=== PATIENT | female | born 1990 | race African-American/Black ===

== ENCOUNTER 2021-01-16 10:33 | Outpatient (CLI) | payer BC ==
[2021-01-16 12:14] LABS: Hemoglobin 12.6 g/dL (12.0-15.5); Mean Corpuscular HGB CONC 32.6 g/dL (32.0-36.0); Mean Corpuscular Hemoglobin 30.1 pg (27.0-33.0); Mean Corpuscular Volume 92.1 fl (81.6-98.3); Mean Platelet Volume 10.4 fl (7.4-10.4); Platelet Count 236 10x3/uL (150-450); RBC Distribution Width 13.5 % (11.5-14.5); Red Blood Cell (RBC) Count 4.19 10x6/uL (3.90-5.03); White Blood Cell (WBC) Count 12.1 10x3/uL (3.5-10.5)
[2021-01-16 13:18] LABS: BHCG - Serum POSITIVE (NEGATIVE); Pregs Control Background? CLEAR/WHITE (CLR/WHITE); Pregs Control Bar Appear? YES (CONTROL BAR)
[2021-01-16 20:27] LABS: SARS-CoV-2 PCR by NAA Not Detected (NotDetected)
== END 2021-01-16 10:34 | disposition home or self-care (01) ==
LOC: CSHLAB 10:33
PROVIDERS: ATTEND Obstetrics & Gynecology
DX: Z01.812 Encounter for preprocedural laboratory examination (principal); Z20.822 Contact with and (suspected) exposure to COVID-19; O00.80 Other ectopic pregnancy without intrauterine pregnancy
CPT/HCPCS: 84703; 85027; 87635; U0003; U0005

== ENCOUNTER 2021-01-17 09:12 | Day surgery (SDC) | payer BC ==
[2021-01-16 12:12] VITALS: BMI 30.1
[2021-01-17] MEDS ORDERED: EPINEPHrine 1 MG/ML AMP ONE (09:51)
[2021-01-17] MEDS ORDERED: Midazolam HCl 2 mg/2 ml Vial ONE (09:52)
[2021-01-17] MEDS ORDERED: Lidocaine 1% MPF 2 ML VIAL ONE (09:52)
[2021-01-17] MEDS ORDERED: Bupivacaine PF 0.5% 30 ML VIAL ONE (09:52)
[2021-01-17] MEDS ORDERED: Scopolamine 1.5 mg/72 hour Patch ONE (09:52)
[2021-01-17] MEDS ORDERED: Famotidine/PF 20 mg/2ml Vial ONE (09:53)
[2021-01-17] MEDS ORDERED: Rocuronium Bromide 10 MG/ML (10ML VIAL) ONE (09:54)
[2021-01-17] MEDS ORDERED: Lidocaine 1% PF 5 ML VIAL ONE (09:54)
[2021-01-17] MEDS ORDERED: Fentanyl 100 MCG/2 ML VIAL ONE (09:54)
[2021-01-17] MEDS ORDERED: PROPOFOL 20 ML ONE (09:54)
[2021-01-17] MEDS ORDERED: Dexamethasone 20 MG/5 ML VIAL ONE (10:25)
[2021-01-17] MEDS ORDERED: Ondansetron PF 4 MG/2 ML Vial ONE (10:25)
[2021-01-17] MEDS ORDERED: Glycopyrrolate 0.2 MG/ML 5 ML SYRINGE ONE (10:28)
[2021-01-17] MEDS ORDERED: Ketorolac Tromethamine 15 MG/ML VIAL ONE (10:50)
[2021-01-17] MEDS ORDERED: SUGAMMADEX SODIUM 500 MG/5 ML VIAL ONE (10:51)
== END 2021-01-17 12:55 | disposition home or self-care (01) ==
LOC: CSHSDC 09:12
PROVIDERS: ATTEND Obstetrics & Gynecology
PROC: 0UT54ZZ Resection of Right Fallopian Tube, Percutaneous Endoscopic Approach (ICD-10-PCS; principal; 2021-01-17)
PROC: 10T24ZZ Resection of Products of Conception, Ectopic, Percutaneous Endoscopic Approach (ICD-10-PCS; principal; 2021-01-17)
DX: O00.101 Right tubal pregnancy without intrauterine pregnancy (principal); N70.11 Chronic salpingitis; N73.6 Female pelvic peritoneal adhesions (postinfective)
CPT/HCPCS: 88305; J0171; J0690; J1100; J1885; J2250; J2405; J2704; J3010; S0020; S0028